=== PATIENT | male | born 1960 | race Native Hawaiian/Other Pacific Islander ===

== ENCOUNTER 2020-05-27 15:15 | Emergency (ER) | payer OTHER ==
[~2020-05-27] VITALS: Ht 170.2 cm; Wt 89.4 kg
[~2020-05-27 15:15] MED LIST: 904272561 PO; ACID CONTROL MA20 MG PO; ACIDOPHILUS PRO1 TA1 PO; ALLERCLEAR10 MG PO; ARTIFICIA7 IO; ASPIRIN 81 LOW81 MG PO; BACLOFEN20 MG PO; BISAC-EVAC10 MG RE; CHLORTHALID25 MG PO; COSAMIN DS PO; DULO30CA PO; EQ STOOL SOFTE100 MG PO; GABA300C2 PO; HYDR10TA10 PO; HYDROCODONE BIT1 TA1 PO; LEVE500T5 PO; LIDOPATCH TOP; LIPITOR10 MG PO; LISI20TA11 PO; LORA0.5T17 PO; MAPAP500 MG PO; NEURONTIN 100M100 MG PO; OXCARBAZEPIN300 MG PO; PARO20TA3 PO; PAXIL20 MG PO; TAMS0.4C PO; TIZANIDINE HYDRO4 MG PO; TRAMADOL HYDROC50 MG PO; TYLENOL325 MG PO; VITAMIN D50000 UNIT PO; ZINC40OI11 TOP
[2020-05-27 15:36] LABS: PLATELET COUNT 380 K/uL (142-355)
[2020-05-27 15:44] LABS: POTASSIUM 3.8 mmol/L (3.6-5.2)
[2020-05-27 17:40] VITALS: BP 162/85; TEMP 97.5
[2020-05-27] MEDS ORDERED: LIDO EX (18:34)
[2020-05-27] MEDS ORDERED: ASPERCREME EX (18:34)
[2020-05-27] MEDS ORDERED: [UNRECOGNIZED DRUG - OTHER] OPTH (18:36)
[2020-05-27] MEDS ORDERED: PROVERA10 MG PO (18:36)
[2020-05-27] MEDS ORDERED: SODI1TAB PO (18:37)
[2020-05-27] MEDS ORDERED: TRAZ50TA36 PO (18:39)
[2020-05-27] MEDS ORDERED: OXCARBAZEPIN300 MG PO (18:50)
[2020-05-27] MEDS ORDERED: PARO20TA3 PO (18:50)
[2020-05-27] MEDS ORDERED: VITAMIN D50000 UNIT PO (18:50)
[2020-06-13] MEDS ORDERED: OXCARBAZEPIN300 MG PO (10:06)
[2020-06-13] MEDS ORDERED: NICOTINE T14 MG/241 TD (10:06)
[2020-06-13] MEDS ORDERED: DULO30CA PO (10:07)
[2020-06-13] MEDS ORDERED: AMLODIPINE BESYLATE PO (10:08)
== END 2020-05-27 17:40 | disposition other institution (70) ==
LOC: ED 15:15
PROVIDERS: Family Medicine
DX: R46.89 Other symptoms and signs involving appearance and behavior (principal); I10 Essential (primary) hypertension; F17.220 Nicotine dependence, chewing tobacco, uncomplicated; Z11.59 Encounter for screening for other viral diseases; Z04.6 Encounter for general psychiatric examination, requested by authority
CPT/HCPCS: 80053; 85027; 87635; 93005; 99283; 99285; U0003